=== PATIENT | male | born 1955 | race Caucasian/White ===

== ENCOUNTER 2023-06-07 23:47 | Inpatient (IN) | payer MEDICARE, OTHER, SELFPAY ==
[2023-06-07 16:31] VITALS: BP 144/79
[2023-06-07 19:02] VITALS: BMI 40.5
--- NOTE | 2023-06-07 19:13 | ED.GENMED ---
History of Present Illness
<Fox Bernstein PA-C - Last Filed: 06/07/23 21:10>
General
Chief Complaint: Skin Problem
Source: patient
Time Seen by Provider: 06/07/23 18:18
Travel History
Have you had any contact with someone who has COVID-19?: No
Do you have any symptoms of coronavirus? Fever > 100 degrees, chills, cough, shortness of breath, sore throat, loss of taste or smell, muscle aches, or headache?: No
History of Present Illness
History of Present Illness:
68-year-old male with past medical history of TIA, PE, hypertension, hyperlipidemia, psoriasis, previous melanoma presenting to the emergency department for evaluation of scattered skin lesions that he states have been off and on for a a while but
over the last few weeks have gotten worse, noting a large area on his neck that he believes was an abscess, initially treated by his primary care physician with Bactrim with improvement of the rash but states that he had worsening scattered rashes
and then today developed intraoral pain and what he believed to be was swelling prompting him to contact EMS who brought patient to the ER for further evaluation. Patient had gone back to his primary care physician last week who prescribed him to
other antibiotics which are believed to be Keflex and Bactroban ointment which patient has been using but with minimal relief. Patient states currently his biggest concern is the intraoral pain he is experiencing. Patient denies any fevers,
chills, rigors or any other symptoms presently. He does note that he had a substation operator chief in [place] but since moving to this area he has been unable to follow-up with a substation operator chief and had previously been on a biologic medication (patient
does not remember the name) and states his psoriasis has seem to be worse since not having this medication refilled.
Past History
<Fox Bernstein PA-C - Last Filed: 06/07/23 21:10>
Past History
ED Past Medical History: Cancer (Prostate cancer, melanoma), CVA, HTN, Hypercholesterolemia and Other (Pulmonary embolism)
ED Past Surgical History: Orthopedic
Social History
Tobacco: Non-smoker
Alcohol: None
Drug: None
Personal: Single
Living: alone
Review of Systems
<MATHEW Ramos Last Filed: 06/07/23 21:10>
Review of Systems
All Other Systems: ROS reviewed and negative except as documented in HPI and ROS
Phy Exam
<MATHEW Ramos Last Filed: 06/07/23 21:10>
Physical Exam
Physical Exam:
GENERAL: Alert , in no apparent distress
EYE: conjunctiva clear
Head: Normocephalic atraumatic
NECK: Supple,
ENT: mmm. Right buccal mucosa has a erythematous lesion without any active bleeding, no petechiae
LUNGS: no acute respiratory distress
NEUROLOGICAL: Alert and oriented
SKIN: Warm and dry, scattered small sores/lesions around the neck, 1 on the right mid abdomen, left lower lip with dried scaling skin, cracked lips, bilateral forearms and bilateral lower extremities
MUSCULOSKELETAL: well perfused.
PSYCH: Normal and appropriate interaction.
Scores
<MATHEW Ramos Last Filed: 06/07/23 21:10>
Heart Failure Risk
Heart Failure Risk Score: Not Applicable
Heart Score for Chest Pain Patients
STEMI patient?: Not applicable
Withdrawal Assessment of Alcohol
Withdrawal Assessment Completed?: Not applicable
Course
<MATHEW Ramos Last Filed: 06/07/23 21:10>
Orders/Labs/Results
Orders:
Orders
06/07/23 19:53
C-Reactive Protein Urgent
Comment: ADD ON
Complete Blood Count/With Diff Urgent
Comprehensive Metabolic Panel Urgent
Erythrocyte Sed Rate Urgent
Comment: ADD ON
02/12/24 20:35
Add On- LAB Urgent
Tests Added?: esr/crp
06/07/23 20:46
Vancomycin [Vancocin] 2,000 mg 0.9% Sodium Chloride 500 ml [Nss] 500 ml IV NOW
06/07/23 21:00
Lactic Acid Q4H
Comment: CANCEL 2nd LACTIC ACID IF 1st LACTIC ACID IS LESS THAN 2
Blood Culture Q30M
[facility] Source: Blood/Venous
Specimen Description:
06/07/23 21:30
Blood Culture Q30M
[facility] Source: Blood/Venous
Specimen Description:
06/08/23 01:00
Lactic Acid Q4H
Comment: CANCEL 2nd LACTIC ACID IF 1st LACTIC ACID IS LESS THAN 2
Abnormal Lab Results
06/07/23
19:53
WBC 16.0 H 10^3/uL
(4.8-10.8)
Absolute Neuts (auto) 12.6 H 10^3/uL
(1.4-6.5)
Absolute Monos (auto) 1.1 H 10^3/uL
(0.1-0.6)
Neutrophils % 78.9 H %
(42.2-75.2)
Lymphocytes % 13.0 L %
(20.5-51.1)
BUN 8 L mg/dl
(9-20)
Creatinine 0.6 L mg/dL
(0.7-1.3)
06/07/23 19:53
06/07/23 19:53
Vital Signs
Initial and Last Documented VS:
Initial Vital Signs
Temp Pulse Resp BP Pulse Ox
97.9 F 81 16 144/79 97
06/07/23 16:31 06/07/23 16:31 06/07/23 16:31 06/07/23 16:31 06/07/23 16:31
Last Documented Vital Signs
Temp Pulse Resp BP Pulse Ox
97.9 F 81 16 144/79 97
06/07/23 16:31 06/07/23 16:31 06/07/23 16:31 06/07/23 16:31 06/07/23 16:31
Animal Trainer Supervisor consulted with Physician
Animal Trainer Supervisor consulted with physician?: Yes
Name of Physician Consulted: Julio Cesar
<Orion Harrell, DO - Last Filed: 06/07/23 20:36>
Orders/Labs/Results
Orders:
Orders
06/07/23 19:53
C-Reactive Protein Urgent
Comment: ADD ON
Complete Blood Count/With Diff Urgent
Comprehensive Metabolic Panel Urgent
Erythrocyte Sed Rate Urgent
Comment: ADD ON
06/07/23 20:35
Add On- LAB Urgent
Tests Added?: esr/crp
06/07/23 20:46
Vancomycin [Vancocin] 2,000 mg 0.9% Sodium Chloride 500 ml [Nss] 500 ml IV NOW
06/07/23 21:00
Lactic Acid Q4H
Comment: CANCEL 2nd LACTIC ACID IF 1st LACTIC ACID IS LESS THAN 2
Blood Culture Q30M
[facility] Source: Blood/Venous
Specimen Description:
06/07/23 21:30
Blood Culture Q30M
[facility] Source: Blood/Venous
Specimen Description:
06/08/23 01:00
Lactic Acid Q4H
Comment: CANCEL 2nd LACTIC ACID IF 1st LACTIC ACID IS LESS THAN 2
Abnormal Lab Results
06/07/23
19:53
WBC 16.0 H 10^3/uL
(4.8-10.8)
Absolute Neuts (auto) 12.6 H 10^3/uL
(1.4-6.5)
Absolute Monos (auto) 1.1 H 10^3/uL
(0.1-0.6)
Neutrophils % 78.9 H %
(42.2-75.2)
Lymphocytes % 13.0 L %
(20.5-51.1)
BUN 8 L mg/dl
(9-20)
Creatinine 0.6 L mg/dL
(0.7-1.3)
06/07/23 19:53
06/07/23 19:53
Vital Signs
Initial and Last Documented VS:
Initial Vital Signs
Temp Pulse Resp BP Pulse Ox
97.9 F 81 16 144/79 97
06/07/23 16:31 06/07/23 16:31 06/07/23 16:31 06/07/23 16:31 06/07/23 16:31
Last Documented Vital Signs
Temp Pulse Resp BP Pulse Ox
97.9 F 81 16 144/79 97
06/07/23 16:31 06/07/23 16:31 06/07/23 16:31 06/07/23 16:31 06/07/23 16:31
<Fox Bernstein PA-C - Last Filed: 06/07/23 21:10>
MDM/Problems Addressed
Differential Diagnosis Includes:
Given patient was on Bactrim Knowles-Paulino syndrome considered however patient started this medication over 2 weeks ago and completed this so this is very unlikely, psoriasis exacerbation, cellulitis, abscess
MDM/Problems Addressed:
68-year-old male present emergency department with scattered lesions on his skin, intraoral area, mouth, forearms and lower extremities. Overall I suspect patient's psoriasis is likely contributing to the symptoms. The lesion on his abdomen does
have a little bit of surrounding erythema. Patient has been on 2 separate antibiotic tablets and topical ointments. I do feel patient would benefit from a dermatology evaluation. Currently no substation operator chief on-call to discuss the case with. Will
discuss with attending and determine disposition but anticipate discharge home.
<Fox Bernstein PA-C - Last Filed: 06/07/23 21:10>
*Pulse Oximetry
Patient hypoxic: no
*Critical Care Note
Total Time (30-74mins, 75-104mins- exclusive of procedures): Not Applicable
<Fox Bernstein PA-C - Last Filed: 06/07/23 21:10>
Patient Management
Discussion with other providers: Hospitalist
Escalation/DeEscalation of care consider admission/obs:
Patient's white blood cell count came back elevated at 16,000. Overall unclear etiology for patient's symptoms however I do suspect his psoriasis is likely playing a role. Given his leukocytosis with failed outpatient antibiotics I do think it is
reasonable to admit the patient for IV antibiotics and further evaluation/consultation. Patient is agreeable with this plan. Hospitalist is aware and accepts patient for continued evaluation and treatment.
ED Attending Note
<Fox Bernstein PA-C - Last Filed: 06/07/23 21:10>
-
Portions of this chart may have been created with voice recognition software.� Occasional wrong word or��sound alike� substitutions may have occurred due to the inherent limitations of voice recognition software.
<Orion Harrell DO - Last Filed: 06/07/23 20:36>
ED Attending Note
Patient seen and examined by attending physician: Yes
I performed the substantive portion of visit, reviewed & personally made and approve the management plan that is documented in note by myself or KRISTEN.: Yes
ED Attending Note:
Seen with ZARINA examined independently, 68-year-old male type II diabetic not on med psoriasis not on meds subacute onset of multiple apparent abscesses? Which she describes as seeds which are draining spontaneously states he feels ill has had 1 day
under his tongue time on his neck his chest is back his knee
Been on Bactrim with not much relief white count is noted
Disposition?
Discharge Plan
Departure
Patient Disposition: Admit
Date of Disposition: 06/07/23
Time of Disposition: 20:55
Presentation/result/management discussed w/ accepting MD/DO: Hospitalist
Discharge Problem:
Cellulitis, Open wounds of the trunk
Prescriptions:
No Action
cetirizine 10 mg Tablet
10 mg PO DAILY
tamsulosin 0.4 mg capsule
0.4 mg PO DAILY
cephalexin 500 mg capsule
500 mg PO QID
mupirocin 2 % ointment
1 applic TOPICAL BID
Rx Instructions:
apply to sores
albuterol sulfate 90 mcg/actuation HFA aerosol inhaler
1 puff INHALATION R Q4 PRN (Reason: sob/wheezing)
fluticasone propionate 50 mcg/actuation spray,suspension
1 spray INTRANASAL DAILY PRN (Reason: congestion)
rosuvastatin 20 mg tablet
20 mg PO DAILY
metoprolol tartrate 25 mg tablet
25 mg PO BID
duloxetine 60 mg capsule,delayed release(DR/EC)
60 mg PO DAILY
Eliquis 5 mg tablet
5 mg PO BID
Trelegy Ellipta 100-62.5-25 mcg blister with device
1 inh INHALATION R DAILY PRN (Reason: sob/wheezing)
Referrals:
Elise Soriano MD [Family Provider] -
Interventions
Interventions:
*Risk Screen - Suicide Last Done: 06/07/23 16:31
*General Assessment Last Done: 06/07/23 16:31
*Neglect/Abuse Screening Last Done: 06/07/23 16:31
ED- Fall Risk Assessment Last Done: 06/07/23 18:03
*ED COVID-19 Vaccine History Last Done: 06/07/23 16:31
ED-Skin Assessment Last Done: 06/07/23 16:31
[2023-06-07 19:45] VITALS: BP 123/102
[2023-06-07 19:59] LABS: % Basophils 0.3 % (0-2); % Eosinophils 0.8 % (0-6); % Immature Granulocytes 0.3 % (0-0.5); % Monocytes 6.7 % (1.7-9.3); % Neutrophils 78.9 % (42.2-75.2); Absolute Eosinophils 0.1 10^3/uL (0-0.7); Absolute Lymphocytes 2.1 10^3/uL (1.2-3.4); Absolute Monocytes 1.1 10^3/uL (0.1-0.6); Absolute Neutrophils 12.6 10^3/uL (1.4-6.5); Hematocrit 42.8 % (39.0-52.0); Hemoglobin 15.2 g/dL (13.0-18.0); Mean Corp Hgb Conc. 35.5 g/dL (33.0-37.0); Mean Corpuscular Hgb 30.2 pg (27.0-31.0); Mean Corpuscular Volume 84.9 fL (80.0-94.0); Nucleated Red Blood Cells % 0 % (-); Platelet Count 351 10^3/uL (130-400); Red Blood Cell Count 5.04 10^6/uL (4.70-6.10); Red Cell Dist. Width 13.1 % (11.5-14.5)
[2023-06-07 20:00] VITALS: BP 112/73
[2023-06-07 20:12] LABS: ALT (SGPT) 21 U/L (0-50); AST (SGOT) 23 U/L (17-59); Albumin 3.7 g/dl (3.5-5.0); Alkaline Phosphatase 92 U/L (38-126); Blood Urea Nitrogen 8 mg/dl (9-20); Calcium 9.3 mg/dl (8.4-10.2); Carbon Dioxide 26 mmol/L (22-30); Chloride 101 mmol/L (98-107); Estimated Creatinine Clearance > 125 ml/min; Glucose 91 mg/dl (70-99); Potassium 3.7 mmol/L (3.5-5.1); Sodium 136 mmol/L (135-145); Total Bilirubin 0.7 mg/dl (0.2-1.3); Total Protein 6.3 g/dl (6.3-8.2); eGFR > 60.00
[2023-06-07 20:46] LABS: Erythrocyte Sed Rate 14 mm/hour (0-20)
[2023-06-07 21:00] VITALS: BP 111/98
[2023-06-07] MEDS: VANCOCIN 540 MG IV (21:48)
[2023-06-07 22:00] VITALS: BP 131/101
--- NOTE | 2023-06-07 23:10 | HPS.HSE ---
Addendum entered and electronically signed by Jessie Reyes DO 06/08/23 02:35:
The patient is seen and examined and discussed with Zoie. I have reviewed and agree with her history and physical, assessment and plan of care.
He has multiple painful ulcerative skin lesions that he's had for quite some time, and they are not improving with outpatient oral antibiotics. He has facial lesion left oral buccal region and ulcers inside mouth as well
He has underlying Psoriasis not currently being treated.
VSS, AV
Cards RRR no m/r/g
Lungs CTA b/l
Facial lesion left oral buccal region and ulcers inside mouth, ulcerative lesion on abdomen
WBC 16.0
Continue IV Vancomycin, pain management
Derm and ID consultation are pending
Original Note:
Family Physician
-
Family Physician: Elise Soriano MD
Chief Complaint
-
scattered rash
History of Present Illness
68-year-old male with past medical history of TIA, PE, hypertension, hyperlipidemia, psoriasis, previous melanoma presenting to the emergency department for evaluation of scattered skin lesions for on and of for while. for past few week, the rash
got worse. initially treated by his primary care physician with Bactrim with improvement of the rash but states that he had worsening scattered rashes and then today developed intraoral pain prompting him to contact EMS who brought patient to the
ER for further evaluation.� Patient had gone back to his primary care physician last week who prescribed him to other antibiotics which are believed to be Keflex and Bactroban ointment which patient has been using but with minimal relief.Patient
denies any fevers, chills, rigors. denied HOOKS,dizzy or syncopal episode. denied chest pain, sob. denied abdominal pain, n,v,d. denied dysuria or hematuria.
initiated on iv vanco. admitting for further management.
Medical History
Past Medical History
Past Medical History: Reports Other
Additional Past Medical History:
COPD
psoriasis
TIA
PE
HTN
HLD
melanoma
Past Surgical History: Reports Other
Additional Past Surgical History:
back surgery
right leg surgery
left knee surgery
Social History
Tobacco: Non-smoker
Alcohol: None
Drug: None
Family History
Family History: Not pertinent
Allergies / Home Medications
Allergies reflects when Allergies were last updated in [employer].
Home Medications with original date entered in [employer]
Allergy/Medication List:
Allergies
Allergy/AdvReac Type Severity Reaction Status Date / Time
codeine Allergy Unknown Tongue Verified 06/07/23 19:03
Swelling
Home Medications
albuterol sulfate 90 mcg/actuation aerosol inhaler 1 puff inhalation R Q4 PRN sob/wheezing 06/07/23
apixaban 5 mg tablet (Eliquis) 5 mg PO BID 06/07/23
cephalexin 500 mg capsule 500 mg PO QID 06/07/23
cetirizine 10 mg tablet 10 mg PO DAILY 06/07/23
duloxetine 60 mg capsule,delayed release 60 mg PO DAILY 06/07/23
fluticasone fur. 100 mcg-umeclid 62.5 mcg-vilant 25 mcg inhalat.powder (Trelegy Ellipta) 1 inh inhalation R DAILY PRN sob/wheezing 06/07/23
fluticasone propionate 50 mcg/actuation nasal spray,suspension 1 spray intranasal DAILY PRN congestion 06/07/23
metoprolol tartrate 25 mg tablet 25 mg PO BID 06/07/23
mupirocin 2 % topical ointment 1 applic topical BID 06/07/23
rosuvastatin 20 mg tablet 20 mg PO DAILY 06/07/23
tamsulosin 0.4 mg capsule 0.4 mg PO DAILY 06/07/23
Review of Systems
-
Constitutional: Reports No Symptoms
EENT: Reports No Symptoms
Respiratory: Reports No Symptoms
Cardiac: Reports No Symptoms
Abdomen/GI: Reports No Symptoms
: Reports No Symptoms
Musculoskeletal: Reports No Symptoms
Skin: Reports Other (generalized rash)
Neurological: Reports No Symptoms
Endocrine: Reports No Symptoms
Hematologic/Lymphatic: Reports No Symptoms
Psych: Reports No Symptoms
Physical Exam
Vital Signs
Vital Signs
Temp Pulse Resp BP Pulse Ox
97.9 F 81 16 144/79 97
06/07/23 16:31 06/07/23 16:31 06/07/23 16:31 06/07/23 16:31 06/07/23 16:31
Physical Exam
General: Well Developed, Well Nourished and No Apparent Distress
HEENT: NormoCephalic, Moist mucous membranes and Atraumatic
Respiratory: Clear
Cardiac: S1/S2 and Regular Rhythm; No Murmur or Rub
GI: Soft, Non Tender, Non Distended and Normal Bowel Sounds; No Organomegaly
Rectal: Deferred by Provider
Musculoskeletal: No Clubbing, No Cyanosis and No Edema
Skin: Rash and Other (generalized rash on his abdomin, neck, arm)
Neuro: Nonfocal/grossly intact
Psych: Calm
Laboratory Results
-
06/07/23 19:53
06/07/23 19:53
Laboratory Results
Lactic Acid 1.0 mmol/L (0.7-2.0) 06/07/23 21:09
Total Bilirubin 0.7 mg/dl (0.2-1.3) 06/07/23 19:53
AST 23 U/L (17-59) 06/07/23 19:53
ALT 21 U/L (0-50) 06/07/23 19:53
Alkaline Phosphatase 92 U/L (38-126) 06/07/23 19:53
Data Reviewed
-
Lab Data: Labs Reviewed by me
Impression/Plan
-
#generalized cellulitis wound
-hxt of psoriasis, likely psoriasis rash
-wbc 16.0
-blood culture sent from ER
-vanco continued
-ID consulted
-consider dermatology in am, no dermatology recreation leader at this time
-wound care consulted
#hxt of COPD
-not in acute exacerbation
-nebs from home continued
#hxt of PE
-eliquis continued
#anxiety/depression
-duloxetine continued
#essential htn
-metoprolol continued
#HLD
-statin
#BPH
-Flomax continued
#DVT prophylaxis
-eliquis
#CODE status
-full code
[2023-06-08 02:56] VITALS: BP 138/74
[2023-06-08 03:08] VITALS: BP 127/92
[2023-06-08 03:46] VITALS: BMI 31.3
[2023-06-08 06:22] LABS: Hematocrit 42.9 % (39.0-52.0); Hemoglobin 14.6 g/dL (13.0-18.0); Mean Corpuscular Hgb 30.1 pg (27.0-31.0); Mean Corpuscular Volume 88.5 fL (80.0-94.0); Mean Platelet Volume 10.4 fL (7.4-10.4); Platelet Count 345 10^3/uL (130-400); Red Blood Cell Count 4.85 10^6/uL (4.70-6.10); Red Cell Dist. Width 13.1 % (11.5-14.5); White Blood Cell Count 12.3 10^3/uL (4.8-10.8)
[2023-06-08 06:41] LABS: Blood Urea Nitrogen 11 mg/dl (9-20); Calcium 9.7 mg/dl (8.4-10.2); Carbon Dioxide 31 mmol/L (22-30); Chloride 101 mmol/L (98-107); Estimated Creatinine Clearance 94 ml/min; Glucose 136 mg/dl (70-99); Potassium 4.5 mmol/L (3.5-5.1); Sodium 140 mmol/L (135-145); eGFR > 60.00
[2023-06-08 07:00] VITALS: BP 107/64
[2023-06-08] MEDS: SYMBICORT 80/4.5 MCG INHALER 2 PUFF INH ×2 (08:16→19:10)
[2023-06-08] MEDS: SPIRIVA RESPIMAT 2.5 MCG 2 PUFF INH (08:17)
[2023-06-08] MEDS: FLOMAX 0.400000000000000022 MG PO (08:28)
[2023-06-08] MEDS: ELIQUIS 5 MG PO ×2 (08:28→20:48)
[2023-06-08] MEDS: CYMBALTA DELAYED RELEASE 60 MG PO (08:28)
[2023-06-08] MEDS: CRESTOR 20 MG PO (08:28)
--- NOTE | 2023-06-08 09:18 | PHA.VAN.IN ---
Assessment
- Assessment
Renal Function: Unknown baseline (SCR increased 0.6 to 0.9 )
AUC Dosing Plan
- Dosing Variables
Dosing Weight (kg): 99
Dosing CrCl (ml/min): 94
Vd coefficient (L/kg): 0.7
- Empiric Dosing
Initial / Loading Dose: 2000mg - 06/07 21:48
Maintenance Regimen: Vanc 1250mg Q12H starting at 1800
Estimated AUC (mcg*h/mL): 465
Estimated Peak (mcg*h/mL): 28.7
Estimated Trough (mcg/ml): 12.1
Estimated Half Life (H): 8.4
- Monitoring
No levels ordered at this time: consider levels in next few days
Follow renal function - low threshold to switch to dosing by level if SCR continues to trend up
Pharmacokinetics Vancomycin I
- -
Patient Age: 68
Patient Sex: Male
Vancomycin Day #: 1
Indication: Skin And Soft Tissue
Requesting Provider: Bora Lopez
Pertinent Antimicrobial Allergies:
no pertinent antibiotic allergies
Height / Weight:
Height 5 ft 10 in
Actual Weight 98.974 kg
Pertinent Past Medical History: BMI ~31
- Vital Signs / Lab Results
Temp Pulse Resp BP Pulse Ox
97.5 F 74 14 107/64 94
06/08/23 07:00 06/08/23 08:22 06/08/23 08:22 06/08/23 07:00 06/08/23 08:22
Lab Results - Hematology
06/07/23 06/08/23
19:53 05:34
WBC 16.0 H 12.3 H
Lab Results - Chemistry
06/07/23 06/08/23
19:53 05:34
BUN 8 L 11
Creatinine 0.6 L 0.9
Estimated Creat Clear > 125 94
Albumin 3.7
06/07/23 06/08/23
21:09 01:00
Lactic Acid 1.0 Cancelled
[2023-06-08 09:45] VITALS: BP 139/90
[2023-06-08] MEDS: LOPRESSOR 25 MG PO ×2 (10:06→20:48)
--- NOTE | 2023-06-08 11:56 | WOUNDNOTE ---
L UPPER LATERAL ARM
--- NOTE | 2023-06-08 11:57 | WOUNDNOTE ---
WON RN NOTE: Patient admitted with cellulitis and open wounds. PMH of psoriasis, stroke, melanoma, HTN, prostate cancer and PE. Asked to see patient for generalized rash. Patient seen at bedside and able to show where rash was, now scabbed over
lesions. States most of rash is gone, only thing that bothers him is his L chin. There is a patch of dry crusty skin from rash, patient states it looked like seeds, now is tender to the touch. Applied A&D ointment, patient reports it feels better
now. Left supply at bedside and updated nurse Haylee, will sign off unless needed.
--- NOTE | 2023-06-08 11:59 | W.PN.HOSP.TC ---
Today's Communication/Plan
-
monitor vital signs and see plan
Monitor rash
Continue with antibiotics
ID to see
Assessment / Plan
Assessment / Plan
General: Well Developed, Well Nourished and No Apparent Distress
HEENT: NormoCephalic, Moist mucous membranes and Atraumatic
Respiratory: Clear
Cardiac: S1/S2 and Regular Rhythm; No Murmur or Rub
GI: Soft, Non Tender, Non Distended and Normal Bowel Sounds; No Organomegaly
Rectal: Deferred by Provider
Musculoskeletal: No Clubbing, No Cyanosis and No Edema
Skin: Rash and Other (generalized rash on his abdomin, neck, arm)
Neuro: Nonfocal/grossly intact
Psych: Calm
generalized cellulitis wound
-hxt of psoriasis, likely psoriasis rash. patient used to follow up with dermatology in [place] however since she moved about 9 months ago he has not seen any pizzamaker. He used to be on psoriasis medication that he does not remember
-. Mild leukocytosis
-blood culture pending
-vanco continued
-ID consulted
-consider dermatology if symptoms does not improve, no dermatology school lunch monitor at this time
-wound care consulted
#hxt of COPD
-not in acute exacerbation
-nebs from home continued
#hxt of PE
-eliquis continued
#anxiety/depression
-duloxetine continued
#essential htn
-metoprolol continued
#HLD
-statin
#BPH
-Flomax continued
#DVT prophylaxis
-eliquis
#CODE status
-full code
Anticipated Discharge: 24 - 48 hours
Subjective/Interval History
-
Date of Service: June 08, 2023
denies pain
Objective Data
-
Labs:
Laboratory Results
06/08/23
05:34
WBC 12.3 H
Hgb 14.6
Hct 42.9
Plt Count 345
Sodium 140
Potassium 4.5
Chloride 101
Carbon Dioxide 31 H
BUN 11
Creatinine 0.9
Glucose 136 H
Calcium 9.7
Vital Signs:
Vital Signs
Temp Pulse Resp BP Pulse Ox
97.5 F 78 14 139/90 94
06/08/23 07:00 06/08/23 09:45 06/08/23 08:22 06/08/23 09:45 06/08/23 08:22
I&O
06/07/23 06/08/23 06/09/23
06:59 06:59 06:59
Intake Total 240 / 240
Balance 240 / 240
--- NOTE | 2023-06-08 12:25 | PTCARENOTE ---
pt came out to nurses station and stated 'Is anyone going to see me? the seeds are coming out of my skin and something broke off in my ear' This nurse assessed pt and did not see any 'seeds' or new lesion, known lesion to pt's left chin appears
unchanged. pt appears anxious. assured he is getting ABT and was seen by attending and WOC nurse this morning. attending notified.
[2023-06-08] MEDS: BACTROBAN 2% OINTMENT 1 APPLIC TOPICAL ×2 (13:15→20:48)
--- NOTE | 2023-06-08 13:51 | CON.ID ---
Consultation
-
Date/Time Consultation Requested: 06/08/23 3:00
Date/Time Consultation Performed: 06/08/24 13:51
Requesting Provider: John GREEN
Performing Provider: Dr Sunshine
Reason for Consultation: cellulitis
Chief Complaint / Past History
Chief Complaint
rash
History of Present Illness
Mr David is a 68 year old amle with history of psoriasis, DM2 reportedly under control resolved melanoma who presented here yesterday for a diffuse rash which he tells me has been sporadically appearing over the last year. He feels
painful/pruritic 'seeds' under the skin and then 'spreads' the skin - notices the white, creamy seed like lesions coming out of the skin as then the lesions heal. He reports remotely on his posterior neck and when I examine the area there is a
healing lesion with scarring. There is an ulcerative lesion about 2 cm across - superifical with surrounding erythema on his abdomen. There is a circular area of serous crusted fluid adjacent to his L lip. Orally he has a white ulcerative -
irregular lesion on the lateral posterior left oropharynx. he feels a lesion is starting on the L biceps area; I appreciate some xerosis here but no juliana lesions. He was prescribed bactrim and keflex with improvement in any given lesion but later
again with the same progression described above. He reports a 100 lb weight loss in the last year - unintentional. Then began to develop the painful ulcer in the mouth and presented here. Reports No fevers, chills, rigors, chest pain, shortness
of breath, abdominal pain, nausea, vomiting or diarrhea.
Since arrival here he has been afebrile, bp stable, wbc on arrival 16.0 now 12.3 , hgb 14.6, plt 345, L shift is noted, eos were present, cr 0.6 now 0.9, blood cultures x2 in progress, currently on vancomycin. ID is consulted. 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
Past History
Additional Past Medical History:
COPD
psoriasis
TIA
PE
HTN
HLD
melanoma
Additional Past Surgical History:
back surgery
right leg surgery
left knee surgery
Allergy History:
codeine Allergy (Unknown, Verified 06/07/23 19:03)
Tongue Swelling
Medications Reviewed: Yes
Social History
Tobacco: Non-Smoker
Alcohol: None
Drug: None
Family History
Family History: Not Pertinent
Review of Systems
Review of Systems
General: Negative Fever or Chills
All systems: All other systems were reviewed and were negative
Vital Signs
Temp Pulse Resp BP Pulse Ox
97.5 F 78 14 139/90 94
06/08/23 07:00 06/08/23 09:45 06/08/23 08:22 06/08/23 09:45 06/08/23 08:22
Physical Exam
Physical Exam
Constitutional: No Acute Distress
Cardiovascular: Regular Rate and S1/S2; Negative Murmur or Rub
Pulmonary: Clear and Symmetric; Negative Wheezes, Rales or Rhonchi
Gastrointestinal: Soft, Non Tender, Non Distended and Normal Bowel Sounds
Skin: Warm, Dry and Rash; Negative Jaundice
Wound: Other (multiple disparte skin lesions - healing lesion with scarring. There is an ulcerative lesion about 2 cm across - superifical with surrounding erythema on his abdomen. circular area of serous crusted fluid adjacent to his L lip.
Orally he has a white ulcerative - irregular lesion on th)
Lab / Diagnostic Study Results
06/08/23 05:34
06/08/23 05:34
Abs Immat Gran (auto) 0.0 10^3/uL (0-0.05) 06/07/23 19:53
Absolute Neuts (auto) 12.6 10^3/uL (1.4-6.5) H 06/07/23 19:53
Absolute Lymphs (auto) 2.1 10^3/uL (1.2-3.4) 02/12/24 19:53
Absolute Monos (auto) 1.1 10^3/uL (0.1-0.6) H 06/07/23 19:53
Absolute Basos (auto) 0.0 10^3/uL (0-0.2) 06/07/23 19:53
Immature Gran % 0.3 % (0-0.5) 06/07/23 19:53
Neutrophils % 78.9 % (42.2-75.2) H 06/07/23 19:53
Lymphocytes % 13.0 % (20.5-51.1) L 06/07/23 19:53
Monocytes % 6.7 % (1.7-9.3) 06/07/23 19:53
Eosinophils % 0.8 % (0-6) 06/07/23 19:53
Basophils % 0.3 % (0-2) 06/07/23 19:53
ESR 14 mm/hour (0-20) 06/07/23 19:53
Lactic Acid Cancelled 06/08/23 01:00
C-Reactive Protein 13.80 mg/L (0.0-10.00) H 06/07/23 19:53
Microbiology Results
Micro:
06/07/23 21:53 Blood Culture - Pending
Blood/Venous
06/07/23 21:09 Blood Culture - Pending
Blood/Venous
Assessment / Plan
Rash
Unintentional Weight Loss by report - at least 4 kg documented between [facility] and [facility]
Acute Oral Lesion - apthous?
- while a systemic problem is possible, the multiple disparate symptom exacerbated by 'picking' in a patient with a stressful life situation, with symptoms ongoing over a year is most suggestive of delusory parasitosis. I have not yet discussed
this possibility with him but will start with a broad workup and then review my findings with him.
- mrsa screen in progress
- blood cultures x2
- TTE
- 2 view CXR
- qft goldskin
- declines HIV screening - 1 lifetime sexual partner and it was his who he also believes was monomagamous
- start doxycycline, stop vancomycin
- reports last colonoscopy was >5 years ago - would request that he get up to date with routine cancer screenings given stated weight loss
- agree with local care to the wounds
- if oral lesion not resolving in 2 weeks then would have patient see ENT - in the meantime magic mouth wash prescribed
- outpatient follow up with dermatology for skin biopsy.
[2023-06-08 15:00] VITALS: BP 142/83
[2023-06-08] MEDS: HYDROCORTISONE 2.5% CREAM 1 APPLIC TOPICAL ×2 (16:06→20:48)
[2023-06-08] MEDS: FIRST-MOUTHWASH BLM SUSPENSION 5 ML PO (16:09)
[2023-06-08] MEDS: VIBRAMYCIN 100 MG PO (20:48)
[2023-06-08] MEDS: ZYRTEC 10 MG PO (21:35)
[2023-06-08 23:30] VITALS: BP 137/86
[2023-06-09 06:25] LABS: % Basophils 0.5 % (0-2); % Eosinophils 2.1 % (0-6); % Immature Granulocytes 0.4 % (0-0.5); % Lymphocytes 25.7 % (20.5-51.1); % Monocytes 7.7 % (1.7-9.3); % Neutrophils 63.6 % (42.2-75.2); Absolute Basophils 0.1 10^3/uL (0-0.2); Absolute Eosinophils 0.2 10^3/uL (0-0.7); Absolute Lymphocytes 2.6 10^3/uL (1.2-3.4); Absolute Monocytes 0.8 10^3/uL (0.1-0.6); Absolute Neutrophils 6.5 10^3/uL (1.4-6.5); Hematocrit 45.2 % (39.0-52.0); Hemoglobin 15.8 g/dL (13.0-18.0); Mean Corpuscular Volume 85.9 fL (80.0-94.0); Mean Platelet Volume 10.5 fL (7.4-10.4); Nucleated Red Blood Cells % 0 % (-); Platelet Count 342 10^3/uL (130-400); Red Blood Cell Count 5.26 10^6/uL (4.70-6.10); Red Cell Dist. Width 13.1 % (11.5-14.5); White Blood Cell Count 10.1 10^3/uL (4.8-10.8)
[2023-06-09 06:48] LABS: Blood Urea Nitrogen 17 mg/dl (9-20); Carbon Dioxide 29 mmol/L (22-30); Chloride 100 mmol/L (98-107); Estimated Creatinine Clearance 106 ml/min; Glucose 106 mg/dl (70-99); Sodium 138 mmol/L (135-145); eGFR > 60.00
[2023-06-09 07:00] VITALS: BP 152/88
[2023-06-09 07:54] LABS: Glucose - Point of Care 111 mg/dl (70-99)
[2023-06-09] MEDS: SYMBICORT 80/4.5 MCG INHALER 2 PUFF INH ×2 (07:58→19:24)
[2023-06-09] MEDS: SPIRIVA RESPIMAT 2.5 MCG 2 PUFF INH (07:58)
[2023-06-09] MEDS: ZYRTEC 10 MG PO (08:10)
[2023-06-09] MEDS: CYMBALTA DELAYED RELEASE 60 MG PO (08:10)
[2023-06-09] MEDS: VIBRAMYCIN 100 MG PO ×2 (08:10→20:25)
[2023-06-09] MEDS: LOPRESSOR 25 MG PO ×2 (08:10→20:26)
[2023-06-09] MEDS: ELIQUIS 5 MG PO ×2 (08:10→20:25)
[2023-06-09] MEDS: FLOMAX 0.400000000000000022 MG PO (08:10)
[2023-06-09] MEDS: CRESTOR 20 MG PO (08:10)
[2023-06-09] MEDS: HYDROCORTISONE 2.5% CREAM 1 APPLIC TOPICAL ×2 (08:12→20:25)
[2023-06-09] MEDS: BACTROBAN 2% OINTMENT 1 APPLIC TOPICAL ×2 (08:17→20:24)
--- NOTE | 2023-06-09 10:20 | CM ---
Addendum entered by Krystal Yu 06/10/23 12:19:
Plan: discharge to home today; no needs; patient reports he has a ride home
Original Note:
Met with patient at bedside; initial assessment completed
Pharmacy verified: [facility], [address], [place]
Patient reported that he lives in a 3 story home including basement; patient lives on the first floor in the Master bedroom of his son's home.
In the bedroom, he has a hot plate, toaster oven and a refrigerator
PLOF: independent with ambulation, stairs, and ADLs; drives but does not have a car
Even though he lives in son's home; patient stated he does not have a primary contact
SNF/Rehab/Home Care utilization history: none
DME: CPAP, inhaler
Transportation: stated ride home to be determined then stated that [employer] will provide transport just need to give them a couple of days notice
Plan: discharge to home when stable; CM will continue to follow for needs
[2023-06-09] MEDS: VALIUM 5 MG PO (11:17)
[2023-06-09] MEDS: COLACE 100 MG PO ×2 (11:17→20:25)
[2023-06-09] MEDS: MIRALAX 17 GRAMS PO (11:17)
--- NOTE | 2023-06-09 12:48 | W.PN.HOSP.TC ---
Today's Communication/Plan
-
Monitor vital signs and see plan
Trial of Valium
Laxatives
Continue with antibiotics per infectious disease
Assessment / Plan
Assessment / Plan
General: Well Developed, Well Nourished and No Apparent Distress
HEENT: NormoCephalic, Moist mucous membranes and Atraumatic
Respiratory: Clear
Cardiac: S1/S2 and Regular Rhythm; No Murmur or Rub
GI: Soft, Non Tender, Non Distended and Normal Bowel Sounds; No Organomegaly
Rectal: Deferred by Provider
Musculoskeletal: No Clubbing, No Cyanosis and No Edema
Skin: Rash and Other (generalized rash on his abdomin, neck, arm)
Neuro: Nonfocal/grossly intact
Psych: Calm
generalized cellulitis wound
-hxt of psoriasis, likely psoriasis rash. 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 He used to be on psoriasis medication that he does not remember
-. Mild leukocytosis
-blood culture NGTD
cw abx per ID
echo noted
Possibility of delusory parasitosis if all work up negative
derm follow up outpatient
ID following
TB pending
#hxt of COPD
-not in acute exacerbation
-nebs from home continued
Constipation
Laxatives
#hxt of PE
-eliquis continued
Prediabetes
A1c 6
monitor
#anxiety/depression
-duloxetine continued
#essential htn
-metoprolol continued
#HLD
-statin
#BPH
-Flomax continued
#DVT prophylaxis
-eliquis
#CODE status
-full code
Anticipated Discharge: 24 - 48 hours
Subjective/Interval History
-
Date of Service: June 09, 2023
denies pain
Objective Data
-
Labs:
Laboratory Results
06/09/23
05:25
WBC 10.1
Hgb 15.8
Hct 45.2
Plt Count 342
Sodium 138
Potassium 4.0
Chloride 100
Carbon Dioxide 29
BUN 17
Creatinine 0.8
Glucose 106 H
Calcium 10.0
Vital Signs:
Vital Signs
Temp Pulse Resp BP Pulse Ox
97.8 F 76 12 152/88 97
06/09/23 07:00 06/09/23 08:00 06/09/23 08:00 06/09/23 07:00 06/09/23 08:15
I&O
06/08/23 06/09/23 06/10/23
06:59 06:59 06:59
Intake Total 240 / 240 1520 / 1520
Balance 240 / 240 1520 / 1520
--- NOTE | 2023-06-09 13:23 | W.PN.ID1 ---
Date of Service
Date of Service: June 09, 2023
Today's Communication
If blood cultures remain negative then patient would be stable for dc in the AM with follow up with PCP re weight loss and dermatology re: biopsy of skin rash
Assessment / Plan
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
Unintentional Weight Loss by report - at least 4 [place] [facility] [place] [facility]
Leukocytosis
Acute Oral Lesion - apthous?
H/o anxiety and depression
- while a systemic problem is possible, the multiple disparate symptom exacerbated by 'picking' in a patient with a stressful life situation, with symptoms ongoing over a year is most suggestive of Prurigo Nodularis or delusory parasitosis. I have
not yet discussed this possibility with him but will start with a broad workup and then review my findings with him.
- mrsa screen in progress
- blood cultures x2 - no growth to date
- a1c prediabetic
- TTE - no vegetation
- 2 view CXR - no lesions
- qft gold- pending
- continue doxycycline x 7 days total
- agree with zyrtec - would continue indefinately
- reports last colonoscopy was >5 years ago - would request that he get up to date with routine cancer screenings given stated weight loss; I can confirm at least 4 kg weight lossbased on records, patient states its 100 lbs 'I was really happy about
it, but no I didnt change anything)
- agree with local care to the wounds
- if oral lesion not resolving in 2 weeks then would have patient see ENT - in the meantime magic mouth wash prescribed
- outpatient follow up with dermatology for skin biopsy
If blood cultures remain negative then patient would be stable for dc in the AM with follow up with PCP re weight loss and dermatology re: biopsy of skin rash
Chief Complaint
-: Other (rash)
Subjective / Review of Systems
afebrile
bp stable
without leukocytosis
cr stable
blood cultures no growth
complains of racing thoughts, describes his current living situation as hostile, reports a history of depression
some numbness in the feet new today - may be due to wearing shoes in bed - asked him to take them off
suspecting some somatization
Vital Signs / Physical Exam
Vital Signs
Vital Signs
Temp Pulse Resp BP Pulse Ox
97.8 F 76 12 152/88 97
06/09/23 07:00 06/09/23 08:00 06/09/23 08:00 06/09/23 07:00 06/09/23 08:15
Physical Exam
Constitutional: No Acute Distress
Cardiovascular: Regular Rate and S1/S2; Negative Murmur or Rub
Pulmonary: Clear and Symmetric; Negative Wheezes or Rales
Gastrointestinal: Soft, Non Tender, Non Distended and Normal Bowel Sounds
Skin: Warm, Dry and Rash; Negative Jaundice
Objective Data
Lab Data
Lab Results
06/09/23 05:25
06/09/23 05:25
ESR 14 mm/hour (0-20) 06/07/23 19:53
Estimated Creat Clear 106 ml/min 06/09/23 05:25
Lactic Acid Cancelled 06/08/23 01:00
Total Bilirubin 0.7 mg/dl (0.2-1.3) 06/07/23 19:53
AST 23 U/L (17-59) 06/07/23 19:53
ALT 21 U/L (0-50) 06/07/23 19:53
Alkaline Phosphatase 92 U/L (38-126) 06/07/23 19:53
C-Reactive Protein 13.80 mg/L (0.0-10.00) H 06/07/23 19:53
Most recent labs reviewed.
Micro Results:
06/09/23 05:42 MRSA Screen - Pending
Nose
06/09/23 05:25 Blood Culture - Pending
Blood/Venous
06/07/23 21:53 Blood Culture - Preliminary
Blood/Venous No Growth in 24 hours- Final report to follow
06/07/23 21:09 Blood Culture - Preliminary
Blood/Venous No Growth in 24 hours- Final report to follow
--- NOTE | 2023-06-09 14:59 | PTCARENOTE ---
pt asked to speak with this nurse. Pt states 'I'm frustrated, these doctors aren't doing anything. They don't think the seeds are real, she told me it was psychosomatic' This nurse offered reassurance and support. Pt states 'I feel like I'm having a
total panic attack here'. Approaching attending for additional anxiety medications
[2023-06-09 15:00] VITALS: BP 106/73; BP 136/81
[2023-06-09] MEDS: ATIVAN 0.5 MG PO (15:36)
[2023-06-09] MEDS: FIRST-MOUTHWASH BLM SUSPENSION 5 ML PO ×2 (17:43→20:34)
[2023-06-09 23:00] VITALS: BP 128/83
[2023-06-10 06:29] LABS: % Basophils 0.5 % (0-2); % Eosinophils 2.6 % (0-6); % Immature Granulocytes 0.4 % (0-0.5); % Lymphocytes 25.5 % (20.5-51.1); % Monocytes 8.3 % (1.7-9.3); % Neutrophils 62.7 % (42.2-75.2); Absolute Basophils 0.1 10^3/uL (0-0.2); Absolute Eosinophils 0.3 10^3/uL (0-0.7); Absolute Lymphocytes 2.5 10^3/uL (1.2-3.4); Absolute Monocytes 0.8 10^3/uL (0.1-0.6); Absolute Neutrophils 6.2 10^3/uL (1.4-6.5); Hematocrit 46.9 % (39.0-52.0); Hemoglobin 15.9 g/dL (13.0-18.0); Mean Corp Hgb Conc. 33.9 g/dL (33.0-37.0); Mean Corpuscular Hgb 29.7 pg (27.0-31.0); Mean Corpuscular Volume 87.7 fL (80.0-94.0); Mean Platelet Volume 10.3 fL (7.4-10.4); Nucleated Red Blood Cells % 0 % (-); Platelet Count 354 10^3/uL (130-400); Red Blood Cell Count 5.35 10^6/uL (4.70-6.10); Red Cell Dist. Width 13.2 % (11.5-14.5); White Blood Cell Count 9.8 10^3/uL (4.8-10.8)
[2023-06-10 06:55] LABS: Blood Urea Nitrogen 20 mg/dl (9-20); Calcium 10.1 mg/dl (8.4-10.2); Carbon Dioxide 30 mmol/L (22-30); Chloride 99 mmol/L (98-107); Estimated Creatinine Clearance 94 ml/min; Glucose 103 mg/dl (70-99); Sodium 139 mmol/L (135-145); eGFR > 60.00
[2023-06-10 07:00] VITALS: BP 152/92
[2023-06-10] MEDS: SPIRIVA RESPIMAT 2.5 MCG 2 PUFF INH (07:19)
[2023-06-10] MEDS: SYMBICORT 80/4.5 MCG INHALER 2 PUFF INH (07:19)
[2023-06-10] MEDS: FIRST-MOUTHWASH BLM SUSPENSION 5 ML PO ×2 (08:42→12:00)
[2023-06-10] MEDS: FLOMAX 0.400000000000000022 MG PO (08:42)
[2023-06-10] MEDS: ZYRTEC 10 MG PO (08:42)
[2023-06-10] MEDS: CYMBALTA DELAYED RELEASE 60 MG PO (08:42)
[2023-06-10] MEDS: LOPRESSOR 25 MG PO (08:43)
[2023-06-10] MEDS: COLACE 100 MG PO (08:43)
[2023-06-10] MEDS: CRESTOR 20 MG PO (08:43)
[2023-06-10] MEDS: ELIQUIS 5 MG PO (08:43)
[2023-06-10] MEDS: VIBRAMYCIN 100 MG PO (08:43)
[2023-06-10] MEDS: MIRALAX 17 GRAMS PO (08:45)
[2023-06-10] MEDS: HYDROCORTISONE 2.5% CREAM 1 APPLIC TOPICAL (08:45)
[2023-06-10] MEDS: BACTROBAN 2% OINTMENT 1 APPLIC TOPICAL (08:45)
--- NOTE | 2023-06-10 11:10 | W.PN.HOSP.TC ---
Addendum entered and electronically signed by Jakub Montalvo MD 06/10/23 12:12:
Spoke with infectious disease and will discharge the patient.
Time of discharge 37 minutes
Original Note:
Today's Communication/Plan
-
monitor vitals
see plan
dc today
cw doxy
Assessment / Plan
Assessment / Plan
General: Well Developed, Well Nourished and No Apparent Distress
HEENT: NormoCephalic, Moist mucous membranes and Atraumatic
Respiratory: Clear
Cardiac: S1/S2 and Regular Rhythm; No Murmur or Rub
GI: Soft, Non Tender, Non Distended and Normal Bowel Sounds; No Organomegaly
Rectal: Deferred by Provider
Musculoskeletal: No Clubbing, No Cyanosis and No Edema
Skin: Rash and Other (generalized rash on his abdomin, neck, arm)
Neuro: Nonfocal/grossly intact
Psych: Calm
generalized cellulitis wound
-hxt of psoriasis, likely psoriasis rash. 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 He used to be on psoriasis medication that he does not remember
-. Mild leukocytosis, resolved
-blood culture NGTD
cw abx per ID
echo noted
Possibility of delusory parasitosis if all work up negative
derm follow up outpatient
ID following
TB pending
#hxt of COPD
-not in acute exacerbation
-nebs from home continued
Constipation
Laxatives
#hxt of PE
-eliquis continued
Prediabetes
A1c 6
monitor
#anxiety/depression
-duloxetine continued
recommended to see psychiatry outpatient
#essential htn
-metoprolol continued
#HLD
-statin
#BPH
-Flomax continued
#DVT prophylaxis
-eliquis
#CODE status
-full code
Anticipated Discharge: Today
Subjective/Interval History
-
Date of Service: June 10, 2023
denies pain
Objective Data
-
Labs:
Laboratory Results
06/10/23
05:15
WBC 9.8
Hgb 15.9
Hct 46.9
Plt Count 354
Sodium 139
Potassium 5.0
Chloride 99
Carbon Dioxide 30
BUN 20
Creatinine 0.9
Glucose 103 H
Calcium 10.1
Vital Signs:
Vital Signs
Temp Pulse Resp BP Pulse Ox
97.2 F 88 18 152/92 97
06/10/23 07:00 06/10/23 08:43 06/10/23 07:23 06/10/23 08:43 06/10/23 10:11
I&O
06/09/23 06/10/23 06/11/23
06:59 06:59 06:59
Intake Total 1520 / 1520 840 / 840
Balance 1520 / 1520 840 / 840
--- NOTE | 2023-06-10 12:12 | W.DCSUMMARY ---
Discharge Summary
Discharge Data
Date of Admission: 06/07/23
Date of Discharge: 06/10/23
-
Pending Results: No
Hospital Course
68-year-old male with past medical history of COPD, PE, prediabetes, anxiety, depression, essential hypertension, hyperlipidemia, BPH came to the hospital with generalized ulcer wound with erythema. There was concern of cellulitis on admission.
Patient was also seen by infectious disease. Patient had extensive infectious workup there is blood cultures were negative throughout hospitalization. Echocardiogram was also done which did not show any signs of endocarditis. He initially had
mild leukocytosis which over time improved. He also was afebrile throughout hospitalization. Given these findings infectious disease thought patient symptoms could also likely be from the delusory parasitosis. Patient was instructed to follow-up
with dermatology for skin biopsy outpatient. Patient initially was on IV antibiotic which was later transitioned to oral doxycycline to complete the course. For his anxiety patient was started to follow-up with psychiatry outpatient. Given
patient history of psoriasis patient was instructed to see dermatology as soon as possible so he can be started on psoriasis medication. Once his symptoms were improving, he was then discharged home with instructions to follow-up with all his other
physicians outpatient.
Discharge Plan
-
Patient Disposition: Home (Routine Discharge)
Discharge Diagnosis/Procedures: Cellulitis
Possible Psoriasis
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
Anxiety
Diet: As tolerated
Activity: As tolerated
Driving Restrictions: As prior to admission
Bathing Restrictions: None
Activity Restrictions/Additional Instructions:
Wound Care Instructions
L chin: A&D ointment twice a day and as needed, after washing with soap and water.
Please follow-up with dermatology for skin biopsy
Referrals:
Elise Soriano MD [Family Provider] - in less than 1 week
Prescriptions:
New
docusate sodium 100 mg Capsule
100 mg PO BID Qty: 14 0RF
Mag&Al/Sim/Diphenhyd/Lidocaine [First-Mouthwash Blm Suspension]
5 ml PO QID 14 Days Qty: 500 0RF
polyethylene glycol 3350 [HealthyLax] 17 gram Powder In Packet
17 g PO DAILY Qty: 30 0RF
hydrocortisone 2.5 % Cream
1 applic topical BID Qty: 28 0RF
doxycycline hyclate 100 mg Capsule
100 mg PO Q12 Qty: 10 0RF
Continued
cetirizine 10 mg Tablet
10 mg PO DAILY
tamsulosin 0.4 mg capsule
0.4 mg PO DAILY
mupirocin 2 % ointment
1 applic TOPICAL BID
Rx Instructions:
apply to sores
albuterol sulfate 90 mcg/actuation HFA aerosol inhaler
1 puff INHALATION R Q4 PRN (Reason: sob/wheezing)
fluticasone propionate 50 mcg/actuation spray,suspension
1 spray INTRANASAL DAILY PRN (Reason: congestion)
rosuvastatin 20 mg tablet
20 mg PO DAILY
metoprolol tartrate 25 mg tablet
25 mg PO BID
duloxetine 60 mg capsule,delayed release(DR/EC)
60 mg PO DAILY
Eliquis 5 mg tablet
5 mg PO BID
Trelegy Ellipta 100-62.5-25 mcg blister with device
1 inh INHALATION R DAILY PRN (Reason: sob/wheezing)
Discontinued
cephalexin 500 mg capsule
500 mg PO QID
Discharge Orders:
Discharge Patient (As Directed); Ordered 06/10/23
Ordered By: Jakub Montalvo
Discharge Date and Time
Discharge Date/Time: 06/10/23 13:57
--- NOTE | 2023-06-10 14:56 | CM ---
Spoke with patient via phone. Reported that he has a ride home.
Plan: discharge to home; no needs
[2023-06-12 00:19] LABS: Quantiferon Mitogen minus NIL 9.64 IU/mL; Quantiferon NIL 0.02 IU/mL; Quantiferon Plus TB1 minus NIL 0.01 IU/mL (0.00-0.34); Quantiferon Plus TB2 minus NIL 0.01 IU/mL (0.00-0.34); Quantiferon TB Gold Plus Negative (Negative)
== END 2023-06-10 13:57 | disposition home or self-care (01) | DRG 596 ==
LOC: 3 WEST ACU 23:47
PROVIDERS: Physician Assistant Medical; Registered Nurse; ADMITTING PHYSICIAN Internal Medicine; ATTENDING PHYSICIAN Internal Medicine; EMERGENCY PHYSICIAN Emergency Medicine; FAMILY PHYSICIAN Family Medicine; OTHER PHYSICIAN Student in an Organized Health Care Education/Training Program
DX: L40.9 Psoriasis, unspecified (principal); L03.90 Cellulitis, unspecified; I10 Essential (primary) hypertension; E78.00 Pure hypercholesterolemia, unspecified; F32.A Depression, unspecified; F41.9 Anxiety disorder, unspecified; N40.0 Benign prostatic hyperplasia without lower urinary tract symptoms
CPT/HCPCS: 71046; 80048; 80053; 82962; 83036; 83605; 85025; 85027; 85652; 86140; 86480; 87040; 87070; 93306; 94640; 96365; 96366; 99284

== ENCOUNTER 2023-12-03 03:56 | Emergency (ER) | payer MEDICARE, OTHER, SELFPAY ==
[2023-12-03 03:58] VITALS: BMI 28.2
[2023-12-03 04:00] VITALS: BP 148/83
[2023-12-03 04:12] LABS: % Basophils 0.3 % (0-2); % Eosinophils 1.3 % (0-6); % Immature Granulocytes 0.3 % (0-0.5); % Monocytes 8.3 % (1.7-9.3); % Neutrophils 64.8 % (42.2-75.2); Absolute Eosinophils 0.1 10^3/uL (0-0.7); Absolute Lymphocytes 2.8 10^3/uL (1.2-3.4); Absolute Monocytes 0.9 10^3/uL (0.1-0.6); Absolute Neutrophils 7.2 10^3/uL (1.4-6.5); Hematocrit 45.1 % (39.0-52.0); Mean Corp Hgb Conc. 35.5 g/dL (33.0-37.0); Mean Corpuscular Hgb 30.4 pg (27.0-31.0); Mean Corpuscular Volume 85.7 fL (80.0-94.0); Mean Platelet Volume 10.2 fL (7.4-10.4); Nucleated Red Blood Cells % 0 % (-); Platelet Count 339 10^3/uL (130-400); Red Blood Cell Count 5.26 10^6/uL (4.70-6.10); Red Cell Dist. Width 13.1 % (11.5-14.5); White Blood Cell Count 11.1 10^3/uL (4.8-10.8)
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
[2023-12-03 04:37] LABS: Troponin I < 0.012 ng/ml
[2023-12-03 04:40] LABS: ALT (SGPT) 25 U/L (0-50); AST (SGOT) 35 U/L (17-59); Albumin 4.3 g/dl (3.5-5.0); Alkaline Phosphatase 75 U/L (38-126); Blood Urea Nitrogen 12 mg/dl (9-20); Calcium 9.9 mg/dl (8.4-10.2); Carbon Dioxide 28 mmol/L (22-30); Chloride 99 mmol/L (98-107); Estimated Creatinine Clearance 82 ml/min; Glucose 141 mg/dl (70-99); Potassium 3.2 mmol/L (3.5-5.1); Sodium 136 mmol/L (135-145); Total Bilirubin 0.9 mg/dl (0.2-1.3); Total Protein 6.8 g/dl (6.3-8.2); eGFR > 60.00
[2023-12-03 06:11] VITALS: BP 128/86
== END 2023-12-03 07:00 | disposition left against medical advice (07) ==
LOC: EMR 03:56
PROVIDERS: CONSULT PHYSICIAN Psychiatry & Neurology Psychiatry; EMERGENCY PHYSICIAN Student in an Organized Health Care Education/Training Program
DX: R44.3 Hallucinations, unspecified (principal); R45.1 Restlessness and agitation; R07.9 Chest pain, unspecified; R06.02 Shortness of breath; Z53.29 Procedure and treatment not carried out because of patient's decision for other reasons; J44.9 Chronic obstructive pulmonary disease, unspecified; I10 Essential (primary) hypertension; F32.A Depression, unspecified; F41.9 Anxiety disorder, unspecified; E78.5 Hyperlipidemia, unspecified; I45.10 Unspecified right bundle-branch block; N40.0 Benign prostatic hyperplasia without lower urinary tract symptoms; E78.00 Pure hypercholesterolemia, unspecified; Z86.711 Personal history of pulmonary embolism; Z85.820 Personal history of malignant melanoma of skin; Z85.46 Personal history of malignant neoplasm of prostate; Z86.73 Personal history of transient ischemic attack (TIA), and cerebral infarction without residual deficits; Z79.01 Long term (current) use of anticoagulants; Z88.5 Allergy status to narcotic agent
CPT/HCPCS: 99291; 70450; 71046; 80053; 84484; 85025; 93005